=== PATIENT | male | born 1990 | race Caucasian/White ===

== ENCOUNTER 2019-08-31 18:17 | Emergency (ER) | payer SELFPAY ==
[~2019-08-31 18:17] MED LIST: NO HOME MEDS
== END 2019-08-31 18:58 | disposition left against medical advice (07) ==
LOC: ER 18:18
DX: R21 Rash and other nonspecific skin eruption (principal); Z53.21 Procedure and treatment not carried out due to patient leaving prior to being seen by health care provider